=== PATIENT | female | born 1945 | race Caucasian/White ===

== ENCOUNTER 2016-11-05 08:15 | Outpatient (CLI) ==
[2015-06-21 14:26] VITALS: BMI 34.1
[2016-11-05 13:10] LABS: BASOPHILS % (AUTO) 0.7 % (0.0-3.0); EOSINOPHILS # (AUTO) 0.2 K/ul (0.0-0.7); EOSINOPHILS % (AUTO) 2.8 % (0.0-7.0); HEMATOCRIT 36.8 % (37.0-47.0); HEMOGLOBIN 11.6 g/dl (12.0-16.0); IMMATURE GRANULOCYTE % (AUTO) 0.2 % (0.0-5.0); LYMPHOCYTES % (AUTO) 16.9 (10.0-50.0); MEAN CORPUSCULAR HEMOGLOBIN 28.5 pg (27.0-31.0); MEAN CORPUSCULAR HGB CONC 31.5 (31.8-35.4); MEAN CORPUSCULAR VOLUME 90.4 fl (81.0-99.0); MONOCYTES # (AUTO) 0.6 K/uL (0.4-2.0); MONOCYTES % (AUTO) 10.3 (0-10); NEUTROPHILS % (AUTO) 69.1; PLATELET COUNT 204 10^3/uL (140-440); RED BLOOD COUNT 4.07 10^6/ul (4.20-5.40); WHITE BLOOD COUNT 5.81 K/ul (4.6-10.2)
[2016-11-05 13:24] LABS: BILIRUBIN,URINE Negative (NEGATIVE); KETONES,URINE Negative (NEGATIVE); LEUKOCYTE ESTERASE ,URINE Negative (NEGATIVE); NITRITE,URINE Negative (NEGATIVE); PROTEIN,URINE Negative (NEGATIVE); URINE, BLOOD Negative (NEGATIVE)
[2016-11-05 13:27] LABS: ADD URINE MICROSCOPIC NO
[2016-11-05 14:25] LABS: ALBUMIN 3.7 g/dL (3.4-5.0); ALBUMIN/GLOBULIN RATIO 1.28; ANION GAP 13.2; BILIRUBIN,TOTAL 0.52 mg/dL (0.00-1.20); BUN/CREATININE RATIO 35.06; CHOL/HDL RATIO 2.9 (4.5-5.5); CREATININE 0.77 mg/dL (0.60-1.30); POTASSIUM 4.2 mmol/L (3.5-5.10); TOTAL PROTEIN 6.6 g/dL (5.8-8.1)
== END 2016-11-05 08:16 | disposition home or self-care (01) ==
LOC: LAB 08:15
PROVIDERS: ATTEND General Practice
DX: E03.9 Hypothyroidism, unspecified (principal); E78.5 Hyperlipidemia, unspecified; K31.819 Angiodysplasia of stomach and duodenum without bleeding; D64.9 Anemia, unspecified; K21.9 Gastro-esophageal reflux disease without esophagitis; Z79.899 Other long term (current) drug therapy
CPT/HCPCS: 36415; 80053; 80061; 81001; 84443; 85025

== ENCOUNTER 2016-11-12 13:27 | Outpatient (CLI) ==
[2015-06-21 14:26] VITALS: BMI 34.1
== END 2016-11-12 13:28 | disposition home or self-care (01) ==
LOC: LAB 13:27
PROVIDERS: ATTEND General Practice
DX: E03.9 Hypothyroidism, unspecified (principal)
CPT/HCPCS: 36415; 84443

== ENCOUNTER 2017-03-08 10:04 | Outpatient (CLI) ==
[2015-06-21 14:26] VITALS: BMI 34.1
[2017-03-08 12:20] LABS: BASOPHILS # (AUTO) 0.1 K/uL (0-0.2); BASOPHILS % (AUTO) 0.9 % (0.0-3.0); BILIRUBIN,URINE Negative (NEGATIVE); EOSINOPHILS # (AUTO) 0.2 K/ul (0.0-0.7); HEMOGLOBIN 13.6 g/dl (12.0-16.0); IMMATURE GRANULOCYTE % (AUTO) 0.2 % (0.0-5.0); KETONES,URINE Negative (NEGATIVE); LEUKOCYTE ESTERASE ,URINE Trace (NEGATIVE); LYMPHOCYTES # (AUTO) 1.2 K/uL (0.60-3.4); LYMPHOCYTES % (AUTO) 20.3 (10.0-50.0); MEAN CORPUSCULAR HEMOGLOBIN 29.5 pg (27.0-31.0); MEAN CORPUSCULAR HGB CONC 33.2 (31.8-35.4); MEAN CORPUSCULAR VOLUME 88.9 fl (81.0-99.0); MONOCYTES # (AUTO) 0.7 K/uL (0.4-2.0); MONOCYTES % (AUTO) 11.9 (0-10); NEUTROPHILS # (AUTO) 3.6 K/ul (2.0-6.9); NEUTROPHILS % (AUTO) 62.7; NITRITE,URINE Negative (NEGATIVE); PH,URINE 6.5 (5-9); PLATELET COUNT 195 10^3/uL (140-440); PROTEIN,URINE Negative (NEGATIVE); RED BLOOD COUNT 4.61 10^6/ul (4.20-5.40); URINE, BLOOD Negative (NEGATIVE); WHITE BLOOD COUNT 5.71 K/ul (4.6-10.2)
[2017-03-08 12:21] LABS: ADD URINE MICROSCOPIC YES
[2017-03-08 12:46] LABS: BACTERIA,URINE TRACE (NOT PRESENT)
[2017-03-08 12:54] LABS: ALBUMIN 3.8 g/dL (3.4-5.0); ALBUMIN/GLOBULIN RATIO 1.27; BILIRUBIN,TOTAL 0.6 mg/dL (0.00-1.20); BUN/CREATININE RATIO 16.45; CALCIUM 8.9 mg/dL (8.2-10.2); CHOL/HDL RATIO 2.8 (4.5-5.5); CREATININE 0.79 mg/dL (0.60-1.30); TOTAL PROTEIN 6.8 g/dL (5.8-8.1)
== END 2017-03-08 10:05 | disposition home or self-care (01) ==
LOC: LAB 10:04
PROVIDERS: ATTEND General Practice
DX: D64.9 Anemia, unspecified (principal); E78.5 Hyperlipidemia, unspecified; E53.8 Deficiency of other specified B group vitamins; E03.9 Hypothyroidism, unspecified; K21.9 Gastro-esophageal reflux disease without esophagitis; K31.819 Angiodysplasia of stomach and duodenum without bleeding; Z79.899 Other long term (current) drug therapy
CPT/HCPCS: 36415; 80053; 80061; 81001; 84443; 85025

== ENCOUNTER 2017-07-05 12:30 | Outpatient (CLI) ==
[2015-06-21 14:26] VITALS: BMI 34.1
[2017-07-05 12:38] LABS: BASOPHILS # (AUTO) 0.1 K/uL (0-0.2); BASOPHILS % (AUTO) 1.1 % (0.0-3.0); EOSINOPHILS # (AUTO) 0.2 K/ul (0.0-0.7); EOSINOPHILS % (AUTO) 4.2 % (0.0-7.0); HEMATOCRIT 36.6 % (37.0-47.0); HEMOGLOBIN 11.7 g/dl (12.0-16.0); IMMATURE GRANULOCYTE % (AUTO) 0.2 % (0.0-5.0); LYMPHOCYTES % (AUTO) 17.5 (10.0-50.0); MEAN CORPUSCULAR HEMOGLOBIN 28.9 pg (27.0-31.0); MEAN CORPUSCULAR VOLUME 90.4 fl (81.0-99.0); MONOCYTES # (AUTO) 0.6 K/uL (0.4-2.0); MONOCYTES % (AUTO) 10.4 (0-10); NEUTROPHILS # (AUTO) 3.7 K/ul (2.0-6.9); NEUTROPHILS % (AUTO) 66.6; PLATELET COUNT 198 10^3/uL (140-440); RED BLOOD COUNT 4.05 10^6/ul (4.20-5.40); WHITE BLOOD COUNT 5.49 K/ul (4.6-10.2)
[2017-07-05 12:41] LABS: BILIRUBIN,URINE Negative (NEGATIVE); KETONES,URINE Negative (NEGATIVE); LEUKOCYTE ESTERASE ,URINE 1+ (NEGATIVE); NITRITE,URINE Negative (NEGATIVE); PROTEIN,URINE Negative (NEGATIVE); URINE, BLOOD Negative (NEGATIVE)
[2017-07-05 12:42] LABS: ADD URINE MICROSCOPIC YES
[2017-07-05 12:52] LABS: ALBUMIN 3.6 g/dL (3.4-5.0); ALBUMIN/GLOBULIN RATIO 1.13; ANION GAP 11.2; BILIRUBIN,TOTAL 0.39 mg/dL (0.00-1.20); BUN/CREATININE RATIO 27.16; CALCIUM 8.9 mg/dL (8.2-10.2); CREATININE 0.81 mg/dL (0.60-1.30); POTASSIUM 4.2 mmol/L (3.5-5.10); TOTAL PROTEIN 6.8 g/dL (5.8-8.1)
== END 2017-07-05 12:31 | disposition home or self-care (01) ==
LOC: LAB 12:30
PROVIDERS: ATTEND General Practice
DX: D64.9 Anemia, unspecified (principal); E03.9 Hypothyroidism, unspecified; E78.5 Hyperlipidemia, unspecified; K21.9 Gastro-esophageal reflux disease without esophagitis; K31.819 Angiodysplasia of stomach and duodenum without bleeding; Z79.899 Other long term (current) drug therapy
CPT/HCPCS: 36415; 80053; 80061; 81001; 85025

== ENCOUNTER 2017-09-20 11:23 | Outpatient (CLI) ==
[2015-06-21 14:26] VITALS: BMI 34.1
--- NOTE | 2017-09-20 11:59 | DI ---
Exam: Four x-rays of the right knee. Comparison: None available. Reason for exam: Pain in leg. FINDINGS: No acute fracture or malalignment. There is tricompartmental arthrosis with joint space n arrowing. Surgical clips are seen in the soft tissues adjacent to the right knee. No large joint ef fusion is seen. Impression: 1. No acute fracture or dislocation is seen in the right knee. 2. Moderate tricompartmental arthrosis with joint space narrowing and osteophyte formation
--- NOTE | 2017-09-20 12:04 | US ---
EXAM: Ultrasound venous Doppler right lower extermity HISTORY: Pain in right leg COMPARISON: None TECHNIQUE: Venous duplex ultrasound of the right lower extremity was performed using color, navarro-sca le, and Doppler flow imaging. FINDINGS: There is normal color flow and compression of the right common femoral, greater saphenous, profunda femoral, femoral, popliteal, peroneal, posterior tibial, and anterior tibial veins without evidence of intraluminal thrombus. IMPRESSION: No right lower extremity deep venous thrombosis.
== END 2017-09-20 11:24 | disposition home or self-care (01) ==
LOC: RAD 11:23
PROVIDERS: ATTEND General Practice
DX: M79.604 Pain in right leg (principal); M79.89 Other specified soft tissue disorders

== ENCOUNTER 2017-11-15 10:52 | Outpatient (CLI) ==
[2015-06-21 14:26] VITALS: BMI 34.1
== END 2017-11-15 10:53 | disposition home or self-care (01) ==
LOC: FCC-LAB 10:52
PROVIDERS: ATTEND General Practice
DX: D64.9 Anemia, unspecified (principal); E03.9 Hypothyroidism, unspecified; E78.5 Hyperlipidemia, unspecified; K21.9 Gastro-esophageal reflux disease without esophagitis; K31.819 Angiodysplasia of stomach and duodenum without bleeding; Z79.899 Other long term (current) drug therapy
CPT/HCPCS: 36415; 80053; 80061; 81001; 85025

== ENCOUNTER → 2017-11-20 | Outpatient (RCR) ==
[2015-06-21 14:26] VITALS: BMI 34.1
--- NOTE | 2017-11-08 10:15 | RS.OPPTEV2 ---
Date of Note: 11/08/17 Visit #: 1 Date of Evaluation: 11/08/17 Payer Source: MEDICARE Surgery Performed?: Yes Procedure Performed: R knee arthroscopy with partial medial lateral meniscectomies, chondroplasty Date of Procedure: 10/31/17 Treatment Diagnosis: meniscal tear s/p arthroscopy, DJD History of Condition/Mechanism of Injury:: pt states she had been having knee pain for quite some time and underwent surgery 10/31/17 Prior Level of Function.....Patient was independent with: ADL's, Self Care, Caregiving, Ambulation/Mobility, Community Integration/Access Functional Limitations: ADL's, Standing, Squatting, Ambulation, Community Access /Integration Current Subjective/complaints:: pt reports she is doing well after surgery, states MD removed sutures on 11/05/17. She states she has been using a cane since prior to surgery just for stabilization. Treatment Side (optional): Right *Precautions: n/a Medical History Medical History: Hypertension, CVA/TIA (occular stroke), Arthritis Medical History Comments:: CAD Surgical History: CABG Smoking Status: Former smoker Diagnostic Testing/Imaging:: MRI 10/18/17 showed complex tear through the posterior horn of medial meniscus, mild peripheral cartilage loss in the medial femoral condyle, trace joint effusion. Hx Home Medications: aspirin, glucosamine HCL, levothyroxine, loratadine, magnesium oxide, B12 methylcobalamin, calcium with vit d3, pravastatin, metroprolol tartrate, valsartan Patient's Goals: decrease knee pain and amb without cane Pain Assessment - Pain Description Pain Location: R knee Pain Description: Sharp, Aching Current Pain Intensity: 5/10 Worst Pain Intensity: 9/10 Functional Outcome Measure LE Functional Scale: 30 (62%) - G Codes & Severity Modifier G Codes & Modifier: mobility current CL. mobility goal CI Source of G Code score: LE functional scale Observation - Observation Inspection: non pitting edema R knee, and areas of bruising. Posture: Forward Head, Rounded Shoulders, Increased Thoracic Kyphosis Girth Measurement Lower: R knee 46cm. L knee 43cm Gait - Gait Pattern General Gait Pattern Observation: Antalgic Gait Gait Comments: pt amb with decreased step length, with antalgic gait with flexed posture. General Range of Motion: BUE WFL's. LLE WFL's. RLE hip WFL's, ankle WFL's Muscle Strength: BUE 4+/5. LLE 4+/5. RLE hip flex 4-/5, ankle DF/PF 4/5 Knee ROM: Left WFL's Knee Muscle Strength: Left WFL's - Right Knee ROM Right Knee Extension: -8 AAROM Right Knee Flexion: 95 Knee ROM Limitations: Soft Tissue Tightness, Muscle Weakness, Pain - Right Knee Strength Right Knee Extension: 3- Fair- Right Knee Flexion: 3- Fair- Palpation Palpation Findings: Tenderness (R posterior knee, ) Sensation - Sensation Right Upper Extremity: Intact/Normal Left Upper Extremity: Intact/Normal Right Lower Extremity: Intact/Normal Left Lower Extremity: Intact/Normal Balance - Sitting Balance Static Sitting Balance: Normal Dynamic Sitting Balance: Normal - Standing Balance Static Standing Balance: Normal Dynamic Standing Balance: Normal - Heat/Cryotherapy Treatment: Cryotherapy (R knee) Interventions - Exercise/Activities/Manual Therapy Exercises/Activities: pt performed RLE QS, HS, SAQ, hip abd/add, SLR, LAQ 5-10 reps with verbal and tactile cues for technique and required rest periods between ex. Manual Therapy: n/a HOME EXERCISE PROGRAM: pt given written HEP including: AP, QS, SAQ, HS, SLR, LAQ - Charges Timed Code Treatment Minutes: 48 Total Treatment Time: 57 Procedures billed for this date of service:: eval low CP EVALUATION COMPLEXITY LEVEL EVALUATION COMPLEXITY LEVEL: HISTORY: Low (HTN, DJD), EXAM OF BODY SYSTEMS: Low (musculoskeletal, neuromuscular), CLINICAL PRESENTATION: Low, CLINICAL DECISION MAKING: Medium Assessment Assessment: pt presents with decreased strength, balance, gait ability, edema. pt requires skilled PT for therex for LE strengthening, balance, as well as gait training to improve functional mobility. Patient Education: Home Exercise Program, Education of Plan of Care Rehab Potential: Good Short Term Goals Goal #1: pt amb in dept with no LOB with improved gait sequencing w decreased pain Goal to be met by: 11/22/17 Goal #2: pt with improved R knee flex 100 ext -5 AAROM Goal to be met by: 11/22/17 Goal #3: pt rate pain < 4/10 Goal to be met by: 11/22/17 Drug Abuse Resistance Education Officer Goals Goal #1: pt amb community distances without AD with no LOB Goal to be met by: 12/06/17 Goal #2: pt rate pain <2/10 Goal to be met by: 12/06/17 Goal #3: Improved ROM R knee flex 108 ext 0 Goal to be met by: 12/06/17 Goal #4: Improved LE functional score 65 Goal to be met by: 12/06/17 Plan - Treatment to be Provided Procedures: Therapeutic Exercises, Therapeutic Activity, Neuromuscular Rehab, Manual Therapy, Patient Education Modalities: Cryotherapy, Hot Packs - Treatment Plan Frequency: 3 X week Duration: 3 weeks ORDER # VISITS AND/OR THROUGH DATE: 12/06/17 - Treatment Code (1) Right knee meniscal tear Code(s): S83.206A - UNSP TEAR OF UNSP MENISCUS, CURRENT INJURY, RIGHT KNEE, INIT Qualifiers: Encounter type: subsequent encounter Meniscus of knee: medial Meniscus tear of knee type: unspecified type (2) Other specified postprocedural states Code(s): Z98.89 - OTHER SPECIFIED POSTPROCEDURAL STATES * DO NOT USE * Comments: s/p R knee arthroscopy with partial medial and lateral meniscectomies, chondroplasty (3) Right knee pain Code(s): M25.561 - PAIN IN RIGHT KNEE Qualifiers: Chronicity: acute Qualified Code(s): M25.561 - Pain in right knee (4) Joint effusion of knee Qualifiers: Laterality: right Qualified Code(s): M25.461 - Effusion, right knee
--- NOTE | 2017-11-11 15:13 | RS.OPPTDN ---
Subjective Date of Note: 11/11/17 Visit #: 2 Date of Evaluation: 11/08/17 Payer Source: MEDICARE Treatment Diagnosis: meniscal tear s/p arthroscopy, DJD Current Subjective/complaints:: Patient reports she is doing HEP as instructed. States she is walking short distances in her home without AD, but continues use of cane when out in community. *Precautions: n/a Pain Assessment - Pain Description Pain Location: Right knee Current Pain Intensity: 2-3/10 following treatment today Other Comments regarding Pain:: Reports some muscle soreness in hamstrings and calf of the right LE. - Heat/Cryotherapy Treatment: Cryotherapy ([id number] to right knee prior to and 10mins following exercise. Patient in supine with right LE elevated. ) Interventions - Exercise/Activities/Manual Therapy Exercises/Activities: Asissted PROM of right knee flex/ext. Right QS, HS, SAQ, assist hip abd/add, and assist SLR, all 2s/10reps. In sitting, LAQ and ankle pumps. Isometric hip add. In standing, mini-squats, toe-ups, right ham curls, and right forward lunge. Ended with assisting patient on/off stationary bike, slow pace x2mins, alt forward and retro revolutions. Needs assist with getting feet on/off pedals. Total minutes of Exercise: 25mins Manual Therapy: n/a HOME EXERCISE PROGRAM: pt given written HEP including: AP, QS, SAQ, HS, SLR, LAQ. Standing mini-squats, toe-ups, forward lunge, and ham curl. - Charges Timed Code Treatment Minutes: 25mins Total Treatment Time: 45mins Procedures billed for this date of service:: CP, EX2 Assessment: Patient motivated to progress with EX to increase functional activity level. Patient Education: Education of diagnosis, Body/Joint mechanics, Home Exercise Program, Home Safety, Activity Modification Patient demonstrates compliance with HEP?: Yes Short Term Goals Goal #1: pt amb in dept with no LOB with improved gait sequencing w decreased pain Goal to be met by: 11/22/17 Progress towards Goal:: Progressing Goal #2: pt with improved R knee flex 100 ext -5 AAROM Goal to be met by: 11/22/17 Progress towards Goal:: Progressing Goal #3: pt rate pain < 4/10 Goal to be met by: 11/22/17 Progress towards Goal:: Partially Met Senior Living Goals Goal #1: pt amb community distances without AD with no LOB Goal to be met by: 12/06/17 Goal #2: pt rate pain <2/10 Goal to be met by: 12/06/17 Goal #3: Improved ROM R knee flex 108 ext 0 Goal to be met by: 12/06/17 Goal #4: Improved LE functional score 65 Goal to be met by: 12/06/17 Plan PLAN OF CARE EXPIRES ON:: 12/06/17 ORDER # VISITS AND/OR THROUGH DATE: 12/06/17 PLAN: Progress ROM and strengthening exercise to increase patient functional activity level and return her to PLOF.
--- NOTE | 2017-11-13 16:24 | RS.OPPTDN ---
Subjective Date of Note: 11/13/17 Visit #: 3 Date of Evaluation: 11/08/17 Payer Source: MEDICARE Treatment Diagnosis: meniscal tear s/p arthroscopy, DJD Current Subjective/complaints:: Patient reports increased soreness in the right knee joint which she feels is related to weather changes. States she is working on HEP. Reports pain reduction with HP to right knee following EX. *Precautions: n/a Pain Assessment - Pain Description Pain Location: Right knee Pain Description: Aching Current Pain Intensity: moderate Other Comments regarding Pain:: Reports pain and stiffness right knee is worse today, but seems related to weather. - Heat/Cryotherapy Treatment: Hot Pack (Ended with HP [id number] to the right knee following EX. Patient in supine. ) Interventions - Exercise/Activities/Manual Therapy Exercises/Activities: Asissted PROM of right knee flex/ext. Right QS, HS, SAQ, assist hip abd/add, and assist SLR, all 2s/10reps. Red theraband for resistive ankle df, ham curl, and hip add and abd in hook-lying, all 2s/10reps. Isometric hip add and ankle inversion with ball, 2s/10reps each. In sitting, LAQ and ankle pumps. Ended with assisting patient on/off stationary bike, slow pace x5mins, alt forward and retro revolutions. Needs assist with getting feet on/ off pedals. Total minutes of Exercise: 25mins/30mins Manual Therapy: n/a HOME EXERCISE PROGRAM: pt given written HEP including: AP, QS, SAQ, HS, SLR, LAQ. Standing mini-squats, toe-ups, forward lunge, and ham curl. - Charges Timed Code Treatment Minutes: 25mins Total Treatment Time: 50mins Procedures billed for this date of service:: EX2, HP Assessment: Patient with increased pain and stiffness in right knee today, but motivated to continue exercise. She reports good response to moist heat for pain relieft following exercise. Short Term Goals Goal #1: pt amb in dept with no LOB with improved gait sequencing w decreased pain Goal to be met by: 11/22/17 Progress towards Goal:: Progressing Goal #2: pt with improved R knee flex 100 ext -5 AAROM Goal to be met by: 11/22/17 Progress towards Goal:: Partially Met Goal #3: pt rate pain < 4/10 Goal to be met by: 11/22/17 Progress towards Goal:: Partially Met Intermediate Goals Goal #1: pt amb community distances without AD with no LOB Goal to be met by: 12/06/17 Progress towards goal: Progressing Goal #2: pt rate pain <2/10 Goal to be met by: 12/06/17 Goal #3: Improved ROM R knee flex 108 ext 0 Goal to be met by: 12/06/17 Progress towards goal: Progressing Goal #4: Improved LE functional score 65 Goal to be met by: 12/06/17 Plan PLAN OF CARE EXPIRES ON:: 12/06/17 ORDER # VISITS AND/OR THROUGH DATE: 12/06/17 PLAN: Progress exercise to improve gait and functional activity level.
--- NOTE | 2017-11-15 15:09 | RS.OPPTDN ---
Subjective Date of Note: 11/15/17 Visit #: 4 Date of Evaluation: 11/08/17 Payer Source: MEDICARE Treatment Diagnosis: meniscal tear s/p arthroscopy, DJD Current Subjective/complaints:: Patient reports she is walking with cane today due to back pain. States right knee pain is continuing to progress. *Precautions: n/a Pain Assessment - Pain Description Pain Location: Right knee Pain Description: Aching Current Pain Intensity: 2-3/10 - Heat/Cryotherapy Treatment: Hot Pack ([id number] to the right knee following exercise. Patient in supine. ) Interventions - Exercise/Activities/Manual Therapy Exercises/Activities: Asissted PROM of right knee flex/ext. Right QS, HS, SAQ, assist hip abd/add, and assist SLR, all 2s/10reps. Red theraband for resistive ankle df, ham curl, and hip add and abd in hook-lying, all 2s/10reps. Isometric hip add and ankle inversion with ball, 2s/10reps each. In sitting, LAQ and ankle pumps. Red theraband ham curls 3s/10reps. Ended with assisting patient on/ off stationary bike, slow pace x5mins, alt forward and retro revolutions. Only needed assist with getting feet on pedals today. Total minutes of Exercise: 25mins/30mins Manual Therapy: n/a HOME EXERCISE PROGRAM: pt given written HEP including: AP, QS, SAQ, HS, SLR, LAQ. Standing mini-squats, toe-ups, forward lunge, and ham curl. - Charges Timed Code Treatment Minutes: 25mins Total Treatment Time: 50mins Procedures billed for this date of service:: EX2, HP Assessment: Patient reporting progress with walking and pain reduction right knee. Patient Education: Home Exercise Program Patient demonstrates compliance with HEP?: Yes Short Term Goals Goal #1: pt amb in dept with no LOB with improved gait sequencing w decreased pain Goal to be met by: 11/22/17 Progress towards Goal:: Progressing Goal #2: pt with improved R knee flex 100 ext -5 AAROM Goal to be met by: 11/22/17 Progress towards Goal:: Met Goal #3: pt rate pain < 4/10 Goal to be met by: 11/22/17 Progress towards Goal:: Met [facility] Goals Goal #1: pt amb community distances without AD with no LOB Goal to be met by: 12/06/17 Progress towards goal: Progressing Goal #2: pt rate pain <2/10 Goal to be met by: 12/06/17 Goal #3: Improved ROM R knee flex 108 ext 0 Goal to be met by: 12/06/17 Progress towards goal: Progressing Goal #4: Improved LE functional score 65 Goal to be met by: 12/06/17 Plan PLAN OF CARE EXPIRES ON:: 12/06/17 ORDER # VISITS AND/OR THROUGH DATE: 12/06/17 PLAN: Progress exercise to increase functional activity level.
--- NOTE | 2017-11-18 15:04 | RS.OPPTDN ---
Subjective Date of Note: 11/18/17 Visit #: 5 Date of Evaluation: 11/08/17 Payer Source: MEDICARE Treatment Diagnosis: meniscal tear s/p arthroscopy, DJD Current Subjective/complaints:: Reports right knee pain is much better, but continues to walk with cane due to back pain. Reports doing better with walking in her home, including going up/down stairs. *Precautions: n/a Pain Assessment - Pain Description Pain Location: Right knee Pain Description: Dull, Aching Current Pain Intensity: 2/10 - Heat/Cryotherapy Treatment: Hot Pack ([id number] to the right knee following exercise. Patient in supine. ) Interventions - Exercise/Activities/Manual Therapy Exercises/Activities: Asissted PROM of right knee flex/ext. Right QS, HS, and assist hip abd/add. SLR, all 2s/10reps. Red theraband for resistive ankle df, ham curl, and hip add and abd in hook-lying, all 2s/10reps. Isometric hip add and ankle inversion with ball, 2s/10reps each. In sitting, LAQ and ankle pumps. Assisted patient on/off stationary bike, slow pace x5mins, alt forward and retro revolutions. Total minutes of Exercise: 35mins/40mins Manual Therapy: n/a HOME EXERCISE PROGRAM: pt given written HEP including: AP, QS, SAQ, HS, SLR, LAQ. Standing mini-squats, toe-ups, forward lunge, and ham curl. - Charges Timed Code Treatment Minutes: 35mins Total Treatment Time: 55mins Procedures billed for this date of service:: EX2, HP Assessment: Patient reports improvement in strength of the right knee and pain is also improving. She is dooing better with daily activities, including going up/down stairs in her home. Patient Education: Home Exercise Program Patient demonstrates compliance with HEP?: Yes Short Term Goals Goal #1: pt amb in dept with no LOB with improved gait sequencing w decreased pain Goal to be met by: 11/22/17 Progress towards Goal:: Progressing Goal #2: pt with improved R knee flex 100 ext -5 AAROM Goal to be met by: 11/22/17 Progress towards Goal:: Met Goal #3: pt rate pain < 4/10 Goal to be met by: 11/22/17 Progress towards Goal:: Met Laser Operator Goals Goal #1: pt amb community distances without AD with no LOB Goal to be met by: 12/06/17 Progress towards goal: Progressing Goal #2: pt rate pain <2/10 Goal to be met by: 12/06/17 Progress towards goal: Progressing Goal #3: Improved ROM R knee flex 108 ext 0 Goal to be met by: 12/06/17 Progress towards goal: Partially Met Goal #4: Improved LE functional score 65 Goal to be met by: 12/06/17 Plan PLAN OF CARE EXPIRES ON:: 12/06/17 ORDER # VISITS AND/OR THROUGH DATE: 12/06/17 PLAN: Progress exercise to increase functional activity level.
--- NOTE | 2017-11-20 16:39 | RS.OPPTDN ---
Subjective Date of Note: 11/20/17 Visit #: 6 Date of Evaluation: 11/08/17 Payer Source: MEDICARE Treatment Diagnosis: meniscal tear s/p arthroscopy, DJD Current Subjective/complaints:: Reports improvement in left knee pain today. States she is walking without cane. *Precautions: n/a Pain Assessment - Pain Description Pain Location: Right knee Pain Description: Aching Current Pain Intensity: mild, increased to mod with resistive activity - Heat/Cryotherapy Treatment: Hot Pack ([id number] to the right knee following exercise. Patient in supine. ) Interventions - Exercise/Activities/Manual Therapy Exercises/Activities: Asissted PROM of right knee flex/ext. Right QS, HS, and assist hip abd/add. SLR, all 2s/10reps. Red theraband for resistive ankle df, ham curl, and hip add and abd in hook-lying, all 2s/10reps. Isometric hip add and ankle inversion with ball, 2s/10reps each. SAQ 2#, 3s/10reps. In sitting, LAQ and ankle pumps. Red theraband for ham curl, 2s/10reps. Assisted patient on /off stationary bike, slow pace x5mins, (not included in didrect time). Total minutes of Exercise: 25mins/30mins Manual Therapy: n/a HOME EXERCISE PROGRAM: pt given written HEP including: AP, QS, SAQ, HS, SLR, LAQ. Standing mini-squats, toe-ups, forward lunge, and ham curl. - Charges Timed Code Treatment Minutes: 25mins Total Treatment Time: 45mins Procedures billed for this date of service:: EX2, HP Assessment: Patient progressing to ambulation in community without cane today. Patient Education: Home Exercise Program, Home Safety Patient demonstrates compliance with HEP?: Yes Short Term Goals Goal #1: pt amb in dept with no LOB with improved gait sequencing w decreased pain Goal to be met by: 11/22/17 Progress towards Goal:: Progressing Goal #2: pt with improved R knee flex 100 ext -5 AAROM Goal to be met by: 11/22/17 Progress towards Goal:: Met Goal #3: pt rate pain < 4/10 Goal to be met by: 11/22/17 Progress towards Goal:: Met Intermediate Goals Goal #1: pt amb community distances without AD with no LOB Goal to be met by: 12/06/17 Progress towards goal: Partially Met Goal #2: pt rate pain <2/10 Goal to be met by: 12/06/17 Progress towards goal: Progressing Goal #3: Improved ROM R knee flex 108 ext 0 Goal to be met by: 12/06/17 Progress towards goal: Partially Met Goal #4: Improved LE functional score 65 Goal to be met by: 12/06/17 Plan PLAN OF CARE EXPIRES ON:: 12/06/17 ORDER # VISITS AND/OR THROUGH DATE: 12/06/17 PLAN: Progress ROM and strengthening exercise to increase patients functional activity level.
== END ==
PROVIDERS: ATTEND Orthopaedic Surgery
DX: S83.241A Other tear of medial meniscus, current injury, right knee, initial encounter (principal); S83.281A Other tear of lateral meniscus, current injury, right knee, initial encounter; Z47.89 Encounter for other orthopedic aftercare

== ENCOUNTER 2017-11-27 14:00 | Outpatient (RCR) ==
[2017-07-05 12:31] VITALS: BMI 34.1
--- NOTE | 2017-11-22 15:32 | RS.OPPTDN ---
Subjective Date of Note: 11/22/17 Visit #: 7 Date of Evaluation: 11/08/17 Payer Source: MEDICARE Treatment Diagnosis: meniscal tear s/p arthroscopy, DJD Current Subjective/complaints:: Patient reports right knee continues to improve. She has some swelling but is able to walk moderate distances without aggravating pain. *Precautions: n/a Pain Assessment - Pain Description Pain Location: Right knee Pain Description: Tightness Current Pain Intensity: mild Interventions - Exercise/Activities/Manual Therapy Exercises/Activities: Asissted PROM of right knee flex/ext. Right QS, HS, and assist hip abd/add, SLR, all 2s/10reps. Red theraband for resistive ankle df, ham curl, and hip add and abd in hook-lying, all 2s/10reps. Isometric hip add and ankle inversion with ball, 2s/10reps each. SAQ increased to 3#, 3s/10reps. In sitting, red theraband for ham curl, 2s/10reps. Assisted patient on/off stationary bike, slow pace x7mins, (not included in direct time). Total minutes of Exercise: 35mins/42mins Manual Therapy: n/a HOME EXERCISE PROGRAM: pt given written HEP including: AP, QS, SAQ, HS, SLR, LAQ. Standing mini-squats, toe-ups, forward lunge, and ham curl. - Objective Findings Observations,measurements,etc.: Right knee flexion 126 degrees and extension to -4 degrees. - Charges Timed Code Treatment Minutes: 35mins Total Treatment Time: 47mins Procedures billed for this date of service:: EX2 Assessment: Patient progressing with gait, ROM, and strengthening of the right knee. Patient Education: Home Exercise Program Patient demonstrates compliance with HEP?: Yes Short Term Goals Goal #1: pt amb in dept with no LOB with improved gait sequencing w decreased pain Goal to be met by: 11/22/17 Progress towards Goal:: Progressing Goal #2: pt with improved R knee flex 100 ext -5 AAROM Goal to be met by: 11/22/17 Progress towards Goal:: Met Goal #3: pt rate pain < 4/10 Goal to be met by: 11/22/17 Progress towards Goal:: Met Professor Of Radiology Goals Goal #1: pt amb community distances without AD with no LOB Goal to be met by: 12/06/17 Progress towards goal: Partially Met Goal #2: pt rate pain <2/10 Goal to be met by: 12/06/17 Progress towards goal: Partially Met Goal #3: Improved ROM R knee flex 108 ext 0 Goal to be met by: 12/06/17 Progress towards goal: Partially Met Goal #4: Improved LE functional score 65 Goal to be met by: 12/06/17 Plan PLAN OF CARE EXPIRES ON:: 12/06/17 ORDER # VISITS AND/OR THROUGH DATE: 12/06/17 PLAN: Progress with exercise to increase functional activity level.
--- NOTE | 2017-11-25 16:30 | RS.OPPTDN ---
Subjective Date of Note: 11/25/17 Visit #: 8 Date of Evaluation: 11/08/17 Payer Source: MEDICARE Treatment Diagnosis: meniscal tear s/p arthroscopy, DJD Current Subjective/complaints:: Patient reports increase in joint tightness and discomfort with weight-bearing and ROM exercises. Reports improvement in flexibility following treatment. *Precautions: n/a Pain Assessment - Pain Description Pain Location: Right knee Pain Description: Tightness Current Pain Intensity: moderate - Treatment Modality: Ultrasound Parameters/Method Applied: [id number] @ 1.5w/cm2 to the right knee joint prior to EX. Patient Position: Supine Interventions - Exercise/Activities/Manual Therapy Exercises/Activities: Asissted PROM of right knee flex/ext. Right QS, HS, and assist hip abd/add, SLR, all 2s/10reps. Red theraband for resistive ankle df, ham curl, and hip add and abd in hook-lying, all 2s/10reps. Isometric hip add and ankle inversion with ball, 2s/10reps each. Witheld SAQ due to pain today. In sitting, yellow theraband for ham curl, 2s/10reps. Witheld bike due to discomfort. Total minutes of Exercise: 28mins Manual Therapy: n/a HOME EXERCISE PROGRAM: pt given written HEP including: AP, QS, SAQ, HS, SLR, LAQ. Standing mini-squats, toe-ups, forward lunge, and ham curl. - Objective Findings Observations,measurements,etc.: right knee flexion to 128 degrees and extension to -4 degrees. - Charges Timed Code Treatment Minutes: 38mins Total Treatment Time: 40mins Procedures billed for this date of service:: US, EX2 Assessment: Patient demos normal right knee flexion with slight lag in full extension. She responds well to US to reduce pain and stiffness today. Patient Education: Body/Joint mechanics, Home Exercise Program, Home Safety, Activity Modification Patient demonstrates compliance with HEP?: Yes Short Term Goals Goal #1: pt amb in dept with no LOB with improved gait sequencing w decreased pain Goal to be met by: 11/22/17 Progress towards Goal:: Progressing Goal #2: pt with improved R knee flex 100 ext -5 AAROM Goal to be met by: 11/22/17 Progress towards Goal:: Met Goal #3: pt rate pain < 4/10 Goal to be met by: 11/22/17 Progress towards Goal:: Met Intermediate Goals Goal #1: pt amb community distances without AD with no LOB Goal to be met by: 12/06/17 Progress towards goal: Partially Met Goal #2: pt rate pain <2/10 Goal to be met by: 12/06/17 Progress towards goal: Partially Met Goal #3: Improved ROM R knee flex 108 ext 0 Goal to be met by: 12/06/17 Progress towards goal: Partially Met Goal #4: Improved LE functional score 65 Goal to be met by: 12/06/17 Plan PLAN OF CARE EXPIRES ON:: 12/06/17 ORDER # VISITS AND/OR THROUGH DATE: 12/06/17 PLAN: Continue and progress exercise to increase patients functional ambulation and activity level.
--- NOTE | 2017-11-27 16:46 | RS.OPPTDN ---
Subjective Date of Note: 11/27/17 Visit #: 9 Date of Evaluation: 11/08/17 Payer Source: MEDICARE Treatment Diagnosis: meniscal tear s/p arthroscopy, DJD Current Subjective/complaints:: Patient reports right knee pain has bothered her more the last few days. She reports she saw her surgeon yesterday and was told she may need to have a total knee replacement. She agrees to complete therapy sessions today and not finish this week, as she does not want to exhaust her benefits at this time. She reports she will continue her HEP. *Precautions: n/a Pain Assessment - Pain Description Pain Location: Right knee Pain Description: Tightness, Aching Current Pain Intensity: moderate - Treatment Modality: Ultrasound Parameters/Method Applied: [id number] at 1.5w/cm2 to the right knee joint and around to popliteal surface. Patient Position: Supine Interventions - Exercise/Activities/Manual Therapy Exercises/Activities: Asissted PROM of right knee flex/ext. Right QS, HS, and assist hip abd/add, SLR, all 2s/10reps. Red theraband for resistive ankle df, ham curl, and hip add and abd in hook-lying, all 2s/10reps. Isometric hip add and ankle inversion with ball, 2s/10reps each. Witheld SAQ due to pain today. Witheld bike due to discomfort. Total minutes of Exercise: 30mins Manual Therapy: n/a HOME EXERCISE PROGRAM: pt given written HEP including: AP, QS, SAQ, HS, SLR, LAQ. Standing mini-squats, toe-ups, forward lunge, and ham curl. - Objective Findings Observations,measurements,etc.: Patients Lower Extremity Functional Scale improved to 46/80 or 42.5% deficit (was 30/80 or 62% on Eval) - Charges Timed Code Treatment Minutes: 40mins Total Treatment Time: 45mins Procedures billed for this date of service:: US, EX2 Assessment: Patient reports she has increased her functional activity level and ROM of the right knee. Short Term Goals Goal #1: pt amb in dept with no LOB with improved gait sequencing w decreased pain Goal to be met by: 11/22/17 Progress towards Goal:: Progressing Goal #2: pt with improved R knee flex 100 ext -5 AAROM Goal to be met by: 11/22/17 Progress towards Goal:: Met Goal #3: pt rate pain < 4/10 Goal to be met by: 11/22/17 Progress towards Goal:: Met Roll Winder Goals Goal #1: pt amb community distances without AD with no LOB Goal to be met by: 12/06/17 Progress towards goal: Partially Met Goal #2: pt rate pain <2/10 Goal to be met by: 12/06/17 Progress towards goal: Partially Met Goal #3: Improved ROM R knee flex 108 ext 0 Goal to be met by: 12/06/17 Progress towards goal: Partially Met Comments: -4 degrees extension Goal #4: Improved LE functional score 65 Goal to be met by: 12/06/17 Progress towards goal: Progressing Plan PLAN OF CARE EXPIRES ON:: 12/06/17 ORDER # VISITS AND/OR THROUGH DATE: 12/06/17 PLAN: Discharge with HEP.
--- NOTE | 2017-12-02 16:19 | RS.OPPTDC ---
Date of Discharge: 11/28/17 Date of Evaluation: 11/08/17 Number of Visits: 9 Treatment Diagnosis: meniscal tear s/p arthroscopy, DJD Current Level of Function: R knee flex 128, ext -4 improved from eval flex 95 ext -8. strength R LE quads 4 to 4+/5, hamstrings 4+to5/5 improved from 3-/5 upon eval. pt amb with cane independently. Current Complaints/Gains: pt reports she is pleased with her progress. She is able to perform more ADL's at home. Pain Assessment - Pain Description Pain Location: R knee Pain Description: Sharp, Aching Functional Outcome Measure LE Functional Scale: 46 (improved from 30 on eval) - G Codes & Severity Modifier G Codes & Modifier: mobility goal CI. mobility DC CK Source of G Code score: Lower ext functional index Observation - Observation Posture: Forward Head, Rounded Shoulders Gait - Gait Pattern General Gait Pattern Observation: Antalgic Gait, Decrease Stride Lngth (R) General Range of Motion: BUE and LLE WFL's. R LE knee flex 128 ext -4 Muscle Strength: RLE quads 4 to 4+/5, hamstrings 4+ to 5/5 Interventions - Exercise/Activities/Manual Therapy Exercises/Activities: n/a Manual Therapy: n/a HOME EXERCISE PROGRAM: pt given written HEP including: AP, QS, SAQ, HS, SLR, LAQ. Standing mini-squats, toe-ups, forward lunge, and ham curl. - Charges Timed Code Treatment Minutes: n /a Total Treatment Time: n/a Procedures billed for this date of service:: n/a Assessment Assessment: pt has met all STG and partially met or progressing toward LTG's. pt states she will likely need a TKR and wants to save some of her visits and benefits. Patient Education: Home Exercise Program, Education of Plan of Care Rehab Potential: Good Short Term Goals Goal #1: pt amb in dept with no LOB with improved gait sequencing w decreased pain Goal to be met by: 11/22/17 Progress towards Goal:: Met Goal #2: pt with improved R knee flex 100 ext -5 AAROM Goal to be met by: 11/22/17 Progress towards Goal:: Met Goal #3: pt rate pain < 4/10 Goal to be met by: 11/22/17 Progress towards Goal:: Met Employment [employer]ist Goals Goal #1: pt amb community distances without AD with no LOB Goal to be met by: 12/06/17 Progress towards goal: Partially Met Goal #2: pt rate pain <2/10 Goal to be met by: 12/06/17 Progress towards goal: Partially Met Goal #3: Improved ROM R knee flex 108 ext 0 Goal to be met by: 12/06/17 Progress towards goal: Partially Met Goal #4: Improved LE functional score 65 Goal to be met by: 12/06/17 Progress towards goal: Progressing Plan Reason for Discharge:: Maximum Potential Met
== END 2017-12-21 ==
PROVIDERS: ATTEND Orthopaedic Surgery
DX: S83.206A Unspecified tear of unspecified meniscus, current injury, right knee, initial encounter (principal)

== ENCOUNTER 2018-03-28 10:21 | Outpatient (CLI) ==
[2017-07-05 12:31] VITALS: BMI 34.1
== END 2018-03-28 10:22 | disposition home or self-care (01) ==
LOC: FCC-LAB 10:21
PROVIDERS: ATTEND General Practice
DX: E03.9 Hypothyroidism, unspecified (principal); K31.819 Angiodysplasia of stomach and duodenum without bleeding; E78.5 Hyperlipidemia, unspecified; D64.9 Anemia, unspecified; M51.36 Other intervertebral disc degeneration, lumbar region; K21.9 Gastro-esophageal reflux disease without esophagitis; Z79.899 Other long term (current) drug therapy
CPT/HCPCS: 36415; 80053; 80061; 81001; 84443; 85025

== ENCOUNTER 2018-07-29 09:14 | Outpatient (CLI) ==
[2017-07-05 12:31] VITALS: BMI 34.1
== END 2018-07-29 09:15 | disposition home or self-care (01) ==
LOC: RHC-LAB 09:14
PROVIDERS: ATTEND General Practice
DX: E78.5 Hyperlipidemia, unspecified (principal); I10 Essential (primary) hypertension; Z79.899 Other long term (current) drug therapy
CPT/HCPCS: 36415; 80053; 80061; 81001; 85025

== ENCOUNTER 2018-11-25 08:05 | Outpatient (CLI) ==
[2017-07-05 12:31] VITALS: BMI 34.1
== END 2018-11-25 08:06 | disposition home or self-care (01) ==
LOC: RHC-LAB 08:05
PROVIDERS: ATTEND General Practice
DX: E03.9 Hypothyroidism, unspecified (principal); Z79.899 Other long term (current) drug therapy
CPT/HCPCS: 36415; 80053; 80061; 81001; 84443; 85025; 87086; 87186